=== PATIENT | female | born 1990 | race Caucasian/White ===

== ENCOUNTER → 2016-07-31 | Outpatient (CLI) | payer OTHER ==
[~2016-07-31] MED LIST: BCPILLS PO; LORA0.5T12 PO; NITR1CAP16 PO; PHEN-775 PO
--- NOTE | 2016-07-31 12:23 | DIAGNOSTIC IMAGING REPORT ---
RIGHT SHOULDER MIN 2 VIEWS ROUTINE CLINICAL HISTORY: Right shoulder pain. COMPARISON: Chest radiograph February 25, 2014. FINDINGS: Alignment of the right glenohumeral joint is anatomic. There is slight elevation of the distal right clavicle with respect to the acromion. There is no acute fracture. IMPRESSION: 1. No acute fracture. Anatomic alignment of right glenohumeral joint. 2. Slight elevation of the distal right clavicle with respect to the acromion which suggests a mild age indeterminate AC joint separation. Electronically signed by: Reynaldo Farnsworth M.D. 07/31/2016 12:21 PM Dictated Date/Time: 07/31/2016 12:20 PM
== END | disposition home or self-care (01) ==
LOC: C.RAD1850 11:32
PROVIDERS: ATTEND Nurse Practitioner Family
DX: M25.511 Pain in right shoulder (principal)

== ENCOUNTER 2016-11-20 02:04 | Emergency (ER) | payer BC, OTHER ==
[~2016-11-20] VITALS: Ht 157.5 cm; Wt 83.8 kg
[~2016-11-20 02:04] MED LIST changes: -NITR1CAP16 PO; -PHEN-775 PO
[2016-11-20 02:12] VITALS: TEMP 36.8; Ht 157.5 cm; Wt 83.8 kg
[2016-11-20] MEDS ORDERED: PHENAZOPYRIDINE HCL 200 MG TAB PO STA (02:28)
[2016-11-20 03:38] LABS: MANUAL MICROSCOPIC REQUIRED? YES; REVIEW REQ? NO; SULFASALICYLIC ACID POS (NEG)
[2016-11-20 03:39] LABS: URINE APPEARANCE CLEAR (CLEAR); URINE COLOR RED; URINE SPECIFIC GRAVITY 1.004 (1.000-1.030)
[2016-11-20 03:45] LABS: URINE WBC >30 /hpf (0-5)
[2016-11-20 03:46] LABS: URINE BACTERIA NEG (NEG)
[2016-11-20] MEDS ORDERED: NITROFURANTOIN MONOHYDRATE 100 MG CAP PO ONE (04:00)
[2016-11-20] MEDS ORDERED: NITR1CAP16 PO (04:04)
[2016-11-20] MEDS ORDERED: PHEN-775 PO (04:04)
[2016-11-20 04:07] VITALS: BP 122/85; PULSE 80; O2SAT 100
--- NOTE | 2016-11-20 04:08 | EMERGENCY ROOM VISIT NOTE ---
History Report prepared by Andrea: Shane Huitron Under the Supervision of: Dr. Daisha Jimenez D.O. First contact with patient: 02:17 Chief Complaint: URINARY SYMPTOMS Stated Complaint: PAIN IN LOWER ABD,PEEING BLOOD Nursing Triage Summary: Pt reports UTI symptoms since yesterday am. Now tonight pt having hematuria. History of Present Illness The patient is a 26 year old female who presents to the Emergency Room with complaints of intermittent urinary symptoms beginning yesterday. Her symptoms include hematuria, increased urinary frequency, and burning with urination. She also complains of lower abdominal pain. The patient has a history of UTI's, but has not had one for several years. She has never had hematuria with a UTI in the past. She denies any chance of . The patient denies any back pain, or leg cramping or swelling. Source of History: patient Onset: Yesterday Quality: other (urinary symptoms) Timing: intermittent Associated Symptoms: + abdominal pain (lower), No back pain Note: The patient denies any leg cramping or swelling. Review of Systems See HPI for pertinent positives & negatives. A total of 10 systems reviewed and were otherwise negative. Past Medical & Surgical Medical Problems: (1) Bronchitis Family History No significant family history Social History Smoking Status: Never Smoker Marital Status: Housing Status: lives with significant other Occupation Status: employed Current/Historical Medications Scheduled Control Pills ( Control Pills), 1 TAB PO DAILY Nitrofurantoin Monohyd Macro (Macrobid), 100 MG PO BID Phenazopyridine Hcl (Pyridium), 1 TAB PO TID Allergies Coded Allergies: Onion (Unverified Allergy, Intermediate, NAUSEA, 11/20/16) Adhesives (Unverified Allergy, Unknown, RASH HIVES , 11/20/16) Physical Exam Vital Signs Date Time Temp Pulse Resp B/P (MAP) Pulse Ox O2 Delivery O2 Flow Rate FiO2 11/20/16 04:07 80 18 122/85 100 11/20/16 02:12 36.8 86 16 130/91 99 Room Air Physical Exam HEENT: Head - normocephalic and atraumatic Pupils are equal, round, and reactive to light. Extraocular eye muscles are intact, and sclera are anicteric. Nose - moist nasal mucosa without discharge. Mouth - moist buccal mucosa. Oropharynx is nonerythematous and there is no tonsillar exudate or edema noted. Neck: Supple; no JVD, nuchal rigidity, cervical lymphadenopathy. Heart: Regular rate and rhythm. There is a normal S1 and S2 with no murmurs, clicks, or gallops appreciated. Lungs: Clear to auscultation bilaterally with no wheezes, rales, or rhonchi. Abdomen: Soft, completely nontender, nondistended, with good bowel sounds. There are no palpable pulsatile masses or hepatosplenomegaly. There is no guarding, rigidity, or rebound noted. Extremities: No evidence of cyanosis, clubbing, or edema. There are easily palpable peripheral pulses. Skin: warm and dry with good turgor and no rashes. Medical Decision & Procedures Laboratory Results Test 11/20/16 02:39 Urine Color RED Urine Appearance CLEAR (CLEAR) Urine pH (4.5-7.5) Urine Specific [place] 1.004 (1.000-1.030) Urine Protein (NEG) Urine Glucose (UA) (NEG) Urine Ketones (NEG) Urine Occult Blood (NEG) Urine Nitrite (NEG) Urine Bilirubin (NEG) Urine Urobilinogen (NEG) Urine Leukocyte Esterase (NEG) Urine RBC 5-10 /hpf (0-4) Urine WBC >30 /hpf (0-5) Urine Epithelial Cells 10-20 /lpf (0-5) Urine Bacteria NEG (NEG) Laboratory results per my review. Medications Administered Medications (Trade) Dose Ordered Sig/Sisi Route Start Time Stop Time Status Last Admin Dose Admin Phenazopyridine HCl (Pyridium Tab) 200 mg NOW STAT PO 11/20/16 02:28 11/20/16 02:29 DC 11/20/16 02:38 200 MG Nitrofurantoin Macrocrystals (Macrobid Cap) 100 mg ONE ONCE PO 11/20/16 04:00 11/20/16 04:01 DC 11/20/16 04:02 100 MG Procedure Medications ordered include: Pyridium PO, Macrobid Cap 100 mg PO. ED Course 0226: Past medical records reviewed. The patient was evaluated in room B4B. A complete history and physical exam was performed. A urine specimen was collected and sent to the lab. 0228: Ordered Pyridium Tab 200 mg PO. 0400: I reassessed the patient. She was initially asleep. She states that the Pyridium seems to have helped her urinary symptoms. Ordered Macrobid Cap 100 mg PO. I discussed findings and results with the patient. She verbalized agreement of the treatment plan. The patient was discharged home. Medical Decision The patient is a 26 year old female who presents to the ED with urinary symptoms. Differential diagnosis includes UTI, pyelonephritis, ureteral colic, and kidney stone. Laboratory studies: Urinalysis reveals 5-10 RBC, 5-30 WBC, remainder could not be interpreted due to red coloration. The patient presents with hematuria and significant urinary urgency. The patient does have a remote history of urinary tract infection. She was treated with oral Pyridium. She is feeling slightly better. The urine will be sent for culture. I will start her on Macrobid until her cultures return. Medication Reconcilliation Current Medication List: was personally reviewed by me Blood Pressure Screening Patient's blood pressure: Normal blood pressure Blood pressure disposition: Did not require urgent referral Impression Primary Impression: Hemorrhagic cystitis Scribe Attestation The scribe's documentation has been prepared under my direction and personally reviewed by me in its entirety. I confirm that the note above accurately reflects all work, treatment, procedures, and medical decision making performed by me. Departure Information Dispostion Home / Self-Care Prescriptions Nitrofurantoin Monohyd Macro (MACROBID) 100 Mg Cap 100 MG PO BID, #20 CAP Prov: Daisha Jimenez D.O. 11/20/16 Phenazopyridine Hcl (PYRIDIUM) 200 Mg Tab 1 TAB PO TID for 2 Days, #6 TAB Prov: Daisha Jimenez D.O. 11/20/16 Referrals No Doctor, Assigned (PCP) Forms HOME CARE DOCUMENTATION FORM, IMPORTANT VISIT INFORMATION Patient Instructions My [facility], UTI Additional Instructions Rest. Take plenty of clear liquids pyridium - 1 tab. every 8 hours for urinary symptoms Macrobid - twice a day for 10 days Return to the ER for worsening symptoms
== END 2016-11-20 04:08 | disposition home or self-care (01) ==
LOC: C.EDB 02:05
DX: N30.91 Cystitis, unspecified with hematuria (principal); Z79.3 Long term (current) use of hormonal contraceptives

== ENCOUNTER 2017-11-01 19:54 | Emergency (ER) | payer BC ==
[~2017-11-01] VITALS: Ht 157.5 cm; Wt 82.6 kg
[~2017-11-01 19:54] MED LIST changes: -LORA0.5T12 PO
[2017-11-01 19:58] VITALS: TEMP 36.7; O2SAT 94; Ht 157.5 cm; Wt 82.6 kg
[2017-11-01] MEDS ORDERED: ACETAMINOPHEN 500 MG TAB PO STA (20:31)
[2017-11-01 20:46] LABS: BASO % 0.2 %; BASO ABS # 0.03 K/uL (0-0.2); EOS % 2.4 %; EOS ABS # 0.32 K/uL (0-0.5); HEMATOCRIT 40.7 % (37-47); HEMOGLOBIN 13.4 g/dL (12.0-16.0); IG# 0.05 K/uL (0.00-0.02); LYMPH % 26.8 %; LYMPH ABS # 3.51 K/uL (1.2-3.4); MEAN CELL VOLUME 85.5 fL (80-100); MEAN CORPUSCULAR HEMOGLOBIN 28.2 pg (25-34); MEAN CORPUSCULAR HGB CONC 32.9 g/dl (32-36); MONO % 4.9 %; MONO ABS # 0.64 K/uL (0.11-0.59); NEUT % 65.3 %; NEUT ABS # 8.57 K/uL (1.4-6.5); PLATELET COUNT 289 K/uL (130-400); RED CELL DISTRIBUTION WIDTH CV 13.5 % (11.5-14.5); RED CELL DISTRIBUTION WIDTH SD 42.1 fL (36.4-46.3); WHITE BLOOD COUNT 13.12 K/uL (4.8-10.8)
--- NOTE | 2017-11-01 20:48 | EMERGENCY ROOM VISIT NOTE ---
History Report prepared by Andrea: Wil Landon Under the Supervision of: Dr. Cole Blanco M.D. First contact with patient: 20:16 Chief Complaint: ANXIETY Stated Complaint: PANIC ATTACK, POSSIBLE SEIZURE History of Present Illness The patient is a 27 year old female who presents to the Emergency Room with complaints of chest pain and a jittery sensation caused by what the patient believes was a severe anxiety attack that occurred tonight around 1819. The patient's and EMS state that during the attack the patient was having episodes of shaking where her eyes would roll back and she would be unresponsive. The patient was also unresponsive in between each episode. Per the patient's , the patient had about 5 of these episodes by the time the ambulance came and 2 more in the ambulance. The longest of these episodes were thought to be about 30 seconds, but a majority of them were about 10 seconds. When EMS arrived they gave the patient a dose of 1mg Ativan followed by another dose of 1mg Ativan which helped the patient calm down. The patient does state that she is prescribed Ativan but does not take it regularly with the last time she did being 2 days ago and the time before that being 1 month ago. The patient also reports that her anxiety medication, Zoloft, has been increased from 50mg to 100mg but the increase caused the patient to develop chest tightness so she has been gradually increasing her dose instead. The patient also notes that she has slight back pain due to a fall she endured at work. She also states that she had a moderate headache and feels achy in her chest and arms. Per EMS the patient has no history of seizures and denies drug and alcohol use. Source of History: patient, spouse/significant other, EMS Onset: Today at 1820 Position: chest Quality: ache Timing: other (Episodic) Associated Symptoms: + LOC, + headache Review of Systems See HPI for pertinent positives and negatives. A total of ten systems were reviewed and were otherwise negative. Past Medical & Surgical Medical Problems: (1) Bronchitis Family History No significant family history Social History Smoking Status: Never Smoker Marital Status: Housing Status: lives with significant other Occupation Status: employed Current/Historical Medications Scheduled Biotin (Biotin 5000), 5 MG PO DAILY Control Pills ( Control Pills), 1 TAB PO DAILY Cyanocobalamin (Vitamin B-12), 500 MCG PO DAILY Diphenhydramine Hcl (Benadryl Allergy), 25 MG PO UD Docusate Sodium (Colace), 100 MG PO EVERY OTHER NIGHT Sertraline HCl (Sertraline HCl), 100 MG PO DAILY Scheduled PRN Lorazepam (Ativan), 0.5 MG PO TID PRN for Anxiety Allergies Coded Allergies: Onion (Unverified Allergy, Intermediate, NAUSEA, 11/01/17) Adhesives (Unverified Allergy, Unknown, RASH HIVES , 11/01/17) Physical Exam Vital Signs Date Time Temp Pulse Resp B/P (MAP) Pulse Ox O2 Delivery O2 Flow Rate FiO2 11/01/17 21:41 78 24 116/66 98 Room Air 11/01/17 20:45 84 11/01/17 20:30 90 22 122/83 99 11/01/17 19:58 94 Room Air 11/01/17 19:58 36.7 88 20 127/68 94 Room Air Physical Exam GENERAL: Lying on stretcher. Awake, alert, fatigued-appearing, in no distress HENT: Normocephalic, atraumatic. Oropharynx unremarkable. EYES: Normal conjunctiva. Sclera non-icteric. NECK: Supple. No nuchal rigidity. RESPIRATORY: Clear to auscultation. No wheezes. Normal respiratory effort. CARDIAC: Normal rate. Normal rhythm. Extremities warm and well perfused. GI: Soft, non-distended. No tenderness to palpation. No rebound or guarding. No masses. RECTAL: Deferred. MUSCULOSKELETAL: Atraumatic. Chest examination reveals no tenderness. Minimal left flank tenderness. LOWER EXTREMITIES: Calves are equal size bilaterally and non-tender. No edema NEURO: Normal sensorium. No sensory or motor deficits noted. No facial droop. SKIN: Warm and dry. No rash or jaundice noted. Medical Decision & Procedures ER Provider Diagnostic Interpretation: Radiology results as stated below per my review and radiologist interpretation: CHEST ONE VIEW PORTABLE HISTORY: 27 years-old Female SEIZURE acute seizure with shortness of breath. COMPARISON: Chest radiograph 02/25/2014 TECHNIQUE: Portable AP view of the chest FINDINGS: Cardiomediastinal and hilar silhouettes are within normal limits. Mild right hemidiaphragmatic elevation. No pneumothorax, pleural effusion, focal airspace consolidation or overt pulmonary edema. IMPRESSION: No acute process. The above report was generated using voice recognition software. It may contain grammatical, syntax or spelling errors. Electronically signed by: Russell Dee M.D. 11/01/2017 8:51 PM Dictated Date/Time: 11/01/2017 8:48 PM HEAD WITHOUT CONTRAST (CT) CLINICAL HISTORY: 27 years-old Female with headache. Acute headache with possible seizure TECHNIQUE: Multiple axial CT images of the head were obtained without contrast. A dose lowering technique was utilized adhering to the principles of ALARA. CT DOSE: 537.48 mGy.cm COMPARISON: None. FINDINGS: No acute intracranial hemorrhage, midline shift, intracranial mass, hydrocephalus, territorial ischemia or abnormal extra-axial collection. The calvarium is intact. The paranasal sinuses, mastoid air cells, and middle ear cavities are clear. IMPRESSION: No acute intracranial abnormality. The above report was generated using voice recognition software. It may contain grammatical, syntax or spelling errors. Electronically signed by: Russell Dee M.D. 11/01/2017 9:43 PM Dictated Date/Time: 11/01/2017 9:41 PM Laboratory Results 11/01/17 20:09 Red Blood Count 4.76, Mean Corpuscular Volume 85.5, Mean Corpuscular Hemoglobin 28.2, Mean Corpuscular Hemoglobin Concent 32.9, Mean Platelet Volume 10.0, Neutrophils (%) (Auto) 65.3, Lymphocytes (%) (Auto) 26.8, Monocytes (%) (Auto) 4.9, Eosinophils (%) (Auto) 2.4, Basophils (%) (Auto) 0.2, Neutrophils # (Auto) 8.57, Lymphocytes # (Auto) 3.51, Monocytes # (Auto) 0.64, Eosinophils # (Auto) 0.32, Basophils # (Auto) 0.03 11/01/17 20:09 Test 11/01/17 20:09 11/01/17 20:37 White Blood Count 13.12 K/uL (4.8-10.8) Red Blood Count 4.76 M/uL (4.2-5.4) Hemoglobin 13.4 g/dL (12.0-16.0) Hematocrit 40.7 % (37-47) Mean Corpuscular Volume 85.5 fL (80-100) Mean Corpuscular Hemoglobin 28.2 pg (25-34) Mean Corpuscular Hemoglobin Concent 32.9 g/dl (32-36) Platelet Count 289 K/uL (130-400) Mean Platelet Volume 10.0 fL (7.4-10.4) Neutrophils (%) (Auto) 65.3 % Lymphocytes (%) (Auto) 26.8 % Monocytes (%) (Auto) 4.9 % Eosinophils (%) (Auto) 2.4 % Basophils (%) (Auto) 0.2 % Neutrophils # (Auto) 8.57 K/uL (1.4-6.5) Lymphocytes # (Auto) 3.51 K/uL (1.2-3.4) Monocytes # (Auto) 0.64 K/uL (0.11-0.59) Eosinophils # (Auto) 0.32 K/uL (0-0.5) Basophils # (Auto) 0.03 K/uL (0-0.2) RDW Standard Deviation 42.1 fL (36.4-46.3) RDW Coefficient of Variation 13.5 % (11.5-14.5) Immature Granulocyte % (Auto) 0.4 % Immature Granulocyte # (Auto) 0.05 K/uL (0.00-0.02) Anion Gap 9.0 mmol/L (3-11) Est Creatinine Clear Calc Drug Dose 120.9 ml/min Estimated GFR () 137.3 Estimated GFR (Non- 118.5 BUN/Creatinine Ratio 12.7 (10-20) Calcium Level 8.7 mg/dl (8.5-10.1) Phosphorus Level 2.1 mg/dl (2.5-4.9) Magnesium Level 2.2 mg/dl (1.8-2.4) Troponin I < 0.015 ng/ml (0-0.045) Thyroid Stimulating Hormone (TSH) 4.540 uIu/ml (0.300-4.500) Human Chorionic Gonadotropin, Qual NEG (NEG) Bedside Glucose 121 mg/dl (70-90) Laboratory results reviewed by me Medications Administered Medications (Trade) Dose Ordered Sig/Sisi Route Start Time Stop Time Status Last Admin Dose Admin Acetaminophen (Tylenol Tab) 1,000 mg NOW STAT PO 11/01/17 20:31 11/01/17 20:33 DC 11/01/17 20:53 1,000 MG ECG Per My Interpretation Indication: other (Anxiety Attack) Rate (beats per minute): 85 Rhythm: normal sinus (Sinus arrythmia ) Findings: other (Normal intervals and axis, No acute ST segment elevation) Comparison ECG Date: no prior available ED Course 2017: The patient was evaluated in room B5. A complete history and physical exam was performed. 2030: Tylenol 1000mg PO 2154: I reevaluated the patient and she is feeling more awake and her anxiety has improved. 2204: I reevaluated the patient. Discussed results and discharge instructions: She verbalized understanding and agreement. The patient is ready for discharge. Medical Decision Differential Diagnosis Seizure, panic attack, electrolyte abnormality, infection, ACS, chest wall pain , PNA, PE, aortic dissection, spinal fracture, spinal injury, as well as others. Patient presents after episodes this evening of some shaking anxiety and decreased responsiveness. History of severe anxiety and some issues in the last several days with some chest tightness. Thought this was related to her Zoloft. Previously was on prn Ativan. Not taken significantly for at least a month but did take one on Thursday. None today. Given some Ativan prehospital he as there was initially some concern for possible seizure. Description not sure if this was a true seizure. No history of seizure. Patient was quickly responsive to nasal pharyngeal airway for EMS. Seems like this is more likely anxiety related than seizure. Somewhat sleepy after the Ativan but without neurological deficit at this time. Doubt meningitis or subarachnoid hemorrhage. Mild headache and given Tylenol. CT of head was completed. No evidence of acute intracranial abnormality. Doubt acute ACS. Doubt PE. Some mild lower left back pain from a fall earlier today without significant trauma or injury from this. Basic labs were obtained. No significant abnormality. Patient's feeling improved and not anxious on reevaluation. Discussed options with them going forward. Again feels more likely anxiety. Recommended better anxiety control and follow-up with her regular doctor in the next week. Recommended for her to consider possibly alternate medication is Zoloft does not seem to be helping. Advised her to use the Ativan as necessary. Did go over some seizure precautions and recommended return if there is any concern or issues. They are agreeable for the plan to go home with outpatient follow-up. Medication Reconcilliation Current Medication List: was personally reviewed by me Blood Pressure Screening Patient's blood pressure: Normal blood pressure Impression Primary Impression: Acute anxiety Additional Impressions: Transient alteration of awareness Chest pain Scribe Attestation The scribe's documentation has been prepared under my direction and personally reviewed by me in its entirety. I confirm that the note above accurately reflects all work, treatment, procedures, and medical decision making performed by me. Departure Information Dispostion Home / Self-Care Referrals Chemo Gómez M.D.([facility]) (PCP) Forms HOME CARE DOCUMENTATION FORM, IMPORTANT VISIT INFORMATION Patient Instructions My [facility] Additional Instructions Please maintain good hydration. Utilize your medications as prescribed. Would recommend resting tomorrow the rest of tonight. Utilize her Ativan as necessary going forward. If you feel uncomfortable or like you are going to pass out please sit down and avoid falls. Recommend follow-up with your regular doctor within a week to discuss this episode in your medications. If at any time you have concerns you can always return here for reevaluation or call 911. Problem Qualifiers Additional Impressions: Chest pain Chest pain type: unspecified Qualified Codes: R07.9 - Chest pain, unspecified
[2017-11-01] MEDS ORDERED: ZLF/100 PO (20:53)
--- NOTE | 2017-11-01 20:53 | DIAGNOSTIC IMAGING REPORT ---
CHEST ONE VIEW PORTABLE HISTORY: 27 years-old Female SEIZURE acute seizure with shortness of breath. COMPARISON: Chest radiograph 02/25/2014 TECHNIQUE: Portable AP view of the chest FINDINGS: Cardiomediastinal and hilar silhouettes are within normal limits. Mild right hemidiaphragmatic elevation. No pneumothorax, pleural effusion, focal airspace consolidation or overt pulmonary edema. IMPRESSION: No acute process. The above report was generated using voice recognition software. It may contain grammatical, syntax or spelling errors. Electronically signed by: Russell Dee M.D. 11/01/2017 8:51 PM Dictated Date/Time: 11/01/2017 8:48 PM
[2017-11-01] MEDS ORDERED: DIPH1TAB87 PO (20:55)
[2017-11-01] MEDS ORDERED: LORA-741 PO (20:55)
[2017-11-01] MEDS ORDERED: BIOTCAP2 PO (20:58)
[2017-11-01] MEDS ORDERED: CYAN500T PO (20:59)
[2017-11-01] MEDS ORDERED: DOCU-94 PO (20:59)
[2017-11-01 21:16] LABS: BLOOD UREA NITROGEN 9 mg/dl (7-18); CALCIUM 8.7 mg/dl (8.5-10.1); CARBON DIOXIDE 23 mmol/L (21-32); CREATININE 0.69 mg/dl (0.60-1.20); GLUCOSE 86 mg/dl (70-99); PHOSPHORUS 2.1 mg/dl (2.5-4.9); POTASSIUM 3.4 mmol/L (3.5-5.1); SODIUM 139 mmol/L (136-145)
--- NOTE | 2017-11-01 21:44 | DIAGNOSTIC IMAGING REPORT ---
HEAD WITHOUT CONTRAST (CT) CLINICAL HISTORY: 27 years-old Female with headache. Acute headache with possible seizure TECHNIQUE: Multiple axial CT images of the head were obtained without contrast. A dose lowering technique was utilized adhering to the principles of ALARA. CT DOSE: 537.48 mGy.cm COMPARISON: None. FINDINGS: No acute intracranial hemorrhage, midline shift, intracranial mass, hydrocephalus, territorial ischemia or abnormal extra-axial collection. The calvarium is intact. The paranasal sinuses, mastoid air cells, and middle ear cavities are clear. IMPRESSION: No acute intracranial abnormality. The above report was generated using voice recognition software. It may contain grammatical, syntax or spelling errors. Electronically signed by: Russell Dee M.D. 11/01/2017 9:43 PM Dictated Date/Time: 11/01/2017 9:41 PM
[2017-11-01 22:30] VITALS: BP 112/71; PULSE 81; O2SAT 97
== END 2017-11-01 22:30 | disposition home or self-care (01) ==
LOC: C.EDB 19:54
DX: F41.1 Generalized anxiety disorder (principal); R40.4 Transient alteration of awareness; R07.9 Chest pain, unspecified; M54.9 Dorsalgia, unspecified; W19.XXXA Unspecified fall, initial encounter; Y99.0 Civilian activity done for income or pay; R51 Headache; M79.601 Pain in right arm; M79.602 Pain in left arm; Z79.3 Long term (current) use of hormonal contraceptives; Z79.899 Other long term (current) drug therapy; Z91.018 Allergy to other foods; Z91.048 Other nonmedicinal substance allergy status